=== PATIENT | female | born 1950 | race Hispanic/Latino ===

== ENCOUNTER 2016-08-31 12:59 | Emergency (ER) | payer OTHER, MEDICARE ==
[~2016-08-31] VITALS: Ht 167.6 cm; Wt 89.4 kg
[~2016-08-31 12:59] MED LIST: ALBUTEROL0.09 MG/A1 INH; ASPIRIN EC325 MG PO; BENTYL20 MG PO; LISINOPRIL10 MG PO; PRINIVIL5 M1 PO; ZOFRAN ODT4 M1 PO; ZOFRAN4 M1 PO
[2016-08-31] MEDS ORDERED: AZITHROMYCIN250 M1 PO (13:59)
--- NOTE | 2016-08-31 14:00 | ED INFLUENZA/URI COMPLAINT ---
History of Present Illness General Chief Complaint: Upper Respiratory Sx/Fever Stated Complaint: X2WKS, FEVER,CHILLS,NAUSEA,COUGHING SEEN BY MD Source: patient, old records Exam Limitations: no limitations Vital Signs & Intake/Output Vital Signs & Intake/Output Vital Signs Date Time Temp Pulse Resp B/P Pulse O2 O2 Flow FiO2 Ox Delivery Rate 08/31 1547 98.9 98 20 150/744 96 Room Air 08/31 1304 99.2 108 20 143/85 96 Room Air Allergies Coded Allergies: Fish Containing Products (Severe, ANAPHYLAXIS FROM `SEAFOOD' 01/26/16) Iodinated Contrast Media - Oral and (IODINATED CONTRAST MEDIA - IV DYE) (ITCHING AND REDNESS, - PT SAYS NEEDS TO BE PREMEDICATED 03/22/16) Penicillins (RASH, ITCHING, SWELL 03/22/16) iodine (ITCHING, REDNESS 03/22/16) Reconcile Medications Albuterol Sulfate (Albuterol Sulfate Hfa) 90 MCG HFA.AER.AD 2 PUFF INH Q4-6 PRN PRN SHORTNESS OF BREATH (Reported) 90 MCG PER PUFF Azithromycin 250 MG TABLET 1 DP PO AD ANTIBIOTIC, INFECTION (Reported) 2 the first day followed by 1 for days 2-5 Lisinopril (Prinivil) 5 MG TABLET 1 TAB PO DAILY BP (Reported) Ondansetron (Zofran Odt) 4 MG TAB.RAPDIS 1 TAB SL TID PRN NAUSEA Oseltamivir Phosphate (Tamiflu) 75 MG CAPSULE 1 CAP PO BID INFLUENZA Robitussin AC (Guaifenesin-Codeine Syrup) 200 MG-20 MG/10 ML LIQUID 10 ML PO Q6HR PRN COUGH Triage Note: PT C/O FEVER, WEAKNESS AND NAUSEA. SEEN AT WALK IN AND NEGATIVE FOR FLU. PT STATES NO VOMITING OR DIARRHEA. PT ALSO STATES DRY COUGH Triage Nurses Notes Reviewed? yes Onset: Gradual Duration: week(s): (2), constant Timing: recent history Severity: mild, moderate Severity Numbers: 5 No Modifying Factors: none Associated Symptoms: cough, nausea congestion HPI: 65-year-old female presents emergency room complaining of persistent 2 week history of generalized body aches chills nausea nonproductive cough and congestion. She was started on a Z-Clement 2 days ago by an urgent care and had a negative flu swab done at this time. She states because her nausea she has been unable to keep anything down. She denies any vomiting or diarrhea. She attributes her dizziness and generalized malaise secondary to not eating correctly. There's been no sick contacts or recent travel. No black or bloody stools no diarrhea no abdominal pain chest pain or shortness of breath (RADHA SHARMA) Past History Travel History Traveled to [place] past 21 day No Medical History Any Pertinent Medical History? 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 No (RADHA SHARMA) Review of Systems Review of Systems Constitutional: Reports: see HPI. All Other Systems: Reviewed and Negative Comments Review of systems: See HPI, All other systems negative. Constitutional, chills no fever, no malaise HEENT: No visual changes no sore throat congestion Cardiovascular: No chest pain , no palpitation Skin, no rashes, no change in skin Respiratory: No dyspnea cough no sputum GI: nausea no vomiting, no diarrhea : No dysuria Muscle skeletal: No joint pain, no back pain, no neck pain, Neurologic: No numbness no headache Psych: No stress n Heme/endocrine: No bruising no bleeding Immunology: No lymphadenopathy (RADHA SHARMA) Physical Exam Physical Exam General Appearance: well developed/nourished, no apparent distress, alert, awake , comfortable Ears, Nose, Throat: normal ENT inspection, moist mucous membrane, hearing grossly normal, Tympanic normal Comments: Well-developed well-nourished patient in no apparent distress. Head/Face: Atraumatic, no maxillary/frontal sinus tenderness, no facial swelling Eyes: PERRL, EOMI, no conjunctival injection. No nystagmus Ear:External auditory canal and Tympanic membranes clear Nose: atraumatic.Normal inspection Throat: Moist mucous membranes.Pharynx normal. No pharyngeal erythema/exudate seen. No stridor/drooling or assymetry. No swelling or edema. Neck: Supple, no lymphadenopathy, FROM Back: FROM, Nontender Cardiovascular: Regular rate and rhythms no murmurs rubs or gallops, Respiratory: No respiratory distress. Patient speaking in full complete sentences. Breath sounds clear to auscultation bilaterally: NO W/R/R Abdomen: Soft nontender no rebound or guarding Extremities: full range of motion Neuro: Alert and oriented x3 Skin: Warm & dry;No appreciable rash on exposed skin Psych: Mood affect normal, normal memory normal judgment. Core Measures Severe Sepsis Present: No Septic Shock Present: No (SUSIE RIOS,RADHA) Progress Differential Diagnosis: influenza, otitis, pneumonia, pharyngitis, sinusitis, viral syndrome dehydration Plan of Care: Orders Procedure Date/time Status VIRAL CULTURE 08/31 1430 Active Saline Lock 08/31 1359 Active RAPID VIRAL INFLUENZA A 08/31 1359 Complete CBC WITHOUT DIFFERENTIAL 08/31 1359 Complete BASIC METABOLIC PANEL 08/31 1359 Complete Laboratory Tests 08/31/16 1430: Anion Gap 13, Estimated GFR > 60, BUN/Creatinine Ratio 21.7, Glucose 162 H, Calcium 9.1, CBC w Diff NO MAN DIFF REQ, RBC 4.66, MCV 87.4, MCH 29.6, RDW 12.3, MPV 10.2, Gran % 73.9, Lymphocytes % 12.8 L, Monocytes % 11.0 H, Eosinophils % 1.9, Basophils % 0.4, Absolute Granulocytes 4.4, Absolute Lymphocytes 0.8 L, Absolute Monocytes 0.7 H, Absolute Eosinophils 0.1, Absolute Basophils 0, PUBS MCHC 33.9, Virus Culture Pending Labs ordered old records reviewed IV fluids, Zofran 4 IV ordered. Ordered Case discussed with Dr. Benitez On repeat evaluation patient is resting completely feels improved. Dizziness has resolved she's had no episodes of vomiting IV fluids running. Discussed with her at length all the lab results including her sodium of 1:30. Patient has not been eating appropriately due to her symptoms she is receiving a liter fluid currently case was discussed with DR KRUEGER agrees with plan. 08/31/2016 3:59:34 PMOn repeat evaluation patient again resting in no apparent distress Prescription for Tamiflu Robitussin with codeine and Zofran was provided Discussed with patient over lab results need for close follow-up, I advised post follow-up with her primary care physician provided bland diet clear liquids advance diet as tolerated patient clinically appears well nontoxic-appearing. She's feels comfortable plan cleared for discharge (RADHA SHARMA) Initial ED EKG: none (RADHA SHARMA) Departure Departure Time of Disposition: 1536 Disposition: HOME OR SELF CARE Condition: Stable Clinical Impression Primary Impression: Influenza Secondary Impressions: Hyponatremia Referrals: SASHA CARRENO,SARI (PCP/Family) Additional Instructions: TAMIFLU DIRECTED, ROBITUSSIN WITH CODEINE FOR COUGH THIS MAY MAKE YOU DROWSY. DRINK PLENTY OF FLUIDS, ZOFRAN FOR NAUSEA. TYLENOL OR MOTRIN EVERY 4-6 HOURS. FOLLOW UP WITH YOUR PMD THIS WEEK. RETURN WITH ANY CONCERNS. THESE PRESCRIPTIONS WERE SENT TO YOUR [facility]. Departure Forms: Customer Survey General Discharge Information Prescriptions: Current Visit Scripts Robitussin AC (Guaifenesin-Codeine Syrup) 10 ML PO Q6HR PRN COUGH #200 ML Oseltamivir Phosphate (Tamiflu) 1 CAP PO BID #10 CAP Ondansetron (Zofran Odt) 1 TAB SL TID PRN NAUSEA #10 TAB (RADHA SHARMA) PA/CAPACITY MANAGER Co-Sign Statement Statement: ED Attending supervision documentation- X] I saw and evaluated the patient. I have also reviewed all the pertinent lab results and diagnostic results. I agree with the findings and the plan of care as documented in the PA's/CAPACITY MANAGER's documentation. [] I have reviewed the ED Record and agree with the PA's/CAPACITY MANAGER's documentation. [] Additions or exceptions (if any) to the PAs/CAPACITY MANAGER's note and plan are summarized below: [] (REKHA KRUEGER DO) ED Attending Observation Initial Observation Note: I have seen and personally examined KEI TATE on 08/31/16 at 1406. I agree with the current emergency department documentation. The disposition (admission or discharge) is uncertain at this time, she needs a period of observation for the following reason(s): The ED Nurse caring for this patient has been personally informed as to what the patient is being observed for. (RADHA SHARMA)
[2016-08-31 14:37] LABS: ABSOLUTE BASOPHIL COUNT 0 /CUMM (0.0-0.2); ABSOLUTE EOSINOPHIL COUNT 0.1 /CUMM (0.0-0.7); ABSOLUTE GRANULOCYTE CT 4.4 /CUMM (1.4-6.5); ABSOLUTE LYMPH COUNT 0.8 /CUMM (1.2-3.4); ABSOLUTE MONOCYTE COUNT 0.7 /CUMM (0.10-0.60); BASOPHIL % 0.4 % (0.0-2.0); EOSINOPHIL % 1.9 % (0-5); GRANULOCYTE % 73.9 % (42.2-75.2); HEMATOCRIT 40.7 % (37-47); MEAN CORPUSCULAR HGB 29.6 PG (27.0-31.0); MEAN CORPUSCULAR HGB CONC 33.9 G/DL (33.0-37.0); MEAN CORPUSCULAR VOLUME 87.4 FL (81.0-99.0); MEAN PLATELET VOLUME 10.2 FL (7.4-10.4); PLATELET COUNT 154 /CUMM (130-400); RBC DISTRIBUTION WIDTH 12.3 % (11.5-14.5); RED BLOOD CELL CT 4.66 /CUMM (4.20-5.40); WHITE BLOOD CELL COUNT 5.9 /CUMM (4.8-10.8)
[2016-08-31] MEDS ORDERED: GUAIFENESIN-COD10 ML PO (15:40)
[2016-08-31] MEDS ORDERED: ZOFRAN ODT4 M1 SL (15:40)
[2016-08-31] MEDS ORDERED: TAMIFLU75 M1 PO (15:40)
[2016-08-31 15:47] VITALS: BP 150/744
== END 2016-08-31 16:12 ==
LOC: ERH 12:59
PROVIDERS: Physician Assistant Medical
DX: J11.1 Influenza due to unidentified influenza virus with other respiratory manifestations (principal); E87.1 Hypo-osmolality and hyponatremia
CPT/HCPCS: 87804; 87804-59; 96361; 96374; J2405

== ENCOUNTER 2016-09-01 23:04 | Emergency (ER) | payer OTHER, MEDICARE ==
[~2016-09-01] VITALS: Ht 167.6 cm; Wt 89.4 kg
[~2016-09-01 23:04] MED LIST changes: +AZITHROMYCIN250 M1 PO; +GUAIFENESIN-COD10 ML PO; +TAMIFLU75 M1 PO; +ZOFRAN ODT4 M1 SL
--- NOTE | 2016-09-01 23:57 | ED GI/GU/ABDOMINAL COMPLAINT ---
History of Present Illness General Chief Complaint: General Adult Stated Complaint: PELVIC PAIN, CONSTIPATION, X 1 DAY Source: patient, family, old records Exam Limitations: no limitations Vital Signs & Intake/Output Vital Signs & Intake/Output Vital Signs Date Time Temp Pulse Resp B/P Pulse O2 O2 Flow FiO2 Ox Delivery Rate 09/01 2350 98.6 87 16 165/74 96 Room Air ED Intake and Output 09/02 0000 09/01 1200 Intake Total Output Total Balance Patient 197 lb Weight Allergies Coded Allergies: Fish Containing Products (Severe, ANAPHYLAXIS FROM `SEAFOOD' 01/26/16) Iodinated Contrast Media - Oral and (IODINATED CONTRAST MEDIA - IV DYE) (ITCHING AND REDNESS, - PT SAYS NEEDS TO BE PREMEDICATED 03/22/16) Penicillins (RASH, ITCHING, SWELL 03/22/16) iodine (ITCHING, REDNESS 03/22/16) Reconcile Medications Albuterol Sulfate (Albuterol Sulfate Hfa) 90 MCG HFA.AER.AD 2 PUFF INH Q4-6 PRN PRN SHORTNESS OF BREATH (Reported) 90 MCG PER PUFF Azithromycin 250 MG TABLET 1 DP PO AD ANTIBIOTIC, INFECTION (Reported) 2 the first day followed by 1 for days 2-5 Hyoscyamine (Levsin) 0.125 MG TABLET 1 TAB PO Q4 PRN ABDOMINAL PAIN Lisinopril (Prinivil) 5 MG TABLET 1 TAB PO DAILY BP (Reported) Ondansetron (Zofran Odt) 4 MG TAB.RAPDIS 1 TAB SL TID PRN NAUSEA Oseltamivir Phosphate (Tamiflu) 75 MG CAPSULE 1 CAP PO BID INFLUENZA Robitussin AC (Guaifenesin-Codeine Syrup) 200 MG-20 MG/10 ML LIQUID 10 ML PO Q6HR PRN COUGH Triage Note: 65YO FEMALE TO TRIAGE W/CO PELVIC PRESSURE AND CONSTIPATION. STTES SHE JUST HASD "DIARRHEA BM IN OUR WR BR" ALSO STTES SHE WAS SEEN HERE YESTERDAY AND TESTED POSITIVE FOR FLU. Triage Nurses Notes Reviewed? yes ? N Is pt currently ? No HPI: Patient states that she has been feeling sick for the past week and a half. Patient was seen in the emergency department yesterday and tested positive for influenza. Patient was started on Tamiflu and Robitussin with codeine. Earlier this evening she developed a pressure sensation across her lower abdomen that radiated into the left lower quadrant and into the left mid quadrant. The pain waxes and wanes in intensity. The pain fluctuates from between a 2 out of 10 up to a 10 out of 10. When it is a 10 out of 10 she feels like she is on a pass out. There are no aggravating or mitigating factors. There is no nausea or vomiting. Patient felt like she had to go to the bathroom but was unable to. Patient then had a diarrheal movement in the emergency department. Patient states that did not help the pain at all. Past History Travel History Traveled to [place] past 21 day No Medical History Any Pertinent Medical History? 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 No Review of Systems Review of Systems Constitutional: Reports: no symptoms. EENTM: Reports: no symptoms. Respiratory: Reports: no symptoms. Cardiovascular: Reports: no symptoms. GI: Reports: see HPI, abdominal pain, diarrhea. Genitourinary: Reports: no symptoms. Musculoskeletal: Reports: no symptoms. Skin: Reports: no symptoms. Neurological/Psychological: Reports: no symptoms. Hematologic/Endocrine: Reports: no symptoms. Immunologic/Allergic: Reports: no symptoms. All Other Systems: Reviewed and Negative Physical Exam Physical Exam General Appearance: well developed/nourished, alert, awake, anxious, moderate distress Head: atraumatic Eyes: Bilateral: PERRL, EOMI. Ears, Nose, Throat, Mouth: hearing grossly normal, DRY MUCOUS MEMBRANES Neck: normal inspection, supple, full range of motion Respiratory: normal breath sounds, chest non-tender, no respiratory distress, lungs clear Cardiovascular: regular rate/rhythm, normal peripheral pulses Gastrointestinal: normal bowel sounds, soft, non-tender, no organomegaly, NO REBOUND OR GUARDING Back: normal inspection, normal range of motion, NO cva TENDERNESS Extremities: normal range of motion Neurologic/Psych: no motor/sensory deficits, awake, alert, oriented x 3, normal gait, normal mood/affect Skin: intact, normal color, warm/dry Core Measures ACS in differential dx? No Severe Sepsis Present: No Septic Shock Present: No Progress Differential Diagnosis: appendicitis, biliary colic, cholecystitis, diverticulitis, gastritis, hepatitis, ischemic bowel, inflamm bowel dis, UTI/ pyelo Plan of Care: Orders Procedure Date/time Status URINALYSIS 09/01 2351 Active LIPASE 09/01 2351 Complete COMPREHENSIVE METABOLIC PANEL 09/01 2351 Complete CBC WITHOUT DIFFERENTIAL 09/01 2351 Complete AMYLASE 09/01 2351 Complete Current Medications Sig/Juan Pablo Start time Last Medication Dose Stop Time Status Admin Hyoscyamine 0.125 MG ONCE ONE 09/02 99 UNVr (Levsin) 09/02 100 Laboratory Tests 09/02/16 0006: Anion Gap 10, Estimated GFR > 60, BUN/Creatinine Ratio 22.9, Glucose 199 H, Calcium 8.6, Total Bilirubin 0.4, AST 32, ALT 42, Alkaline Phosphatase 92, Total Protein 6.7, Albumin 3.8, Globulin 2.9, Albumin/Globulin Ratio 1.3, Amylase 60, Lipase 86, CBC w Diff NO MAN DIFF REQ, RBC 4.49, MCV 86.8, MCH 29.5, RDW 12.5, MPV 10.9 H, Gran % 73.2, Lymphocytes % 16.4 L, Monocytes % 7.8, Eosinophils % 2.3, Basophils % 0.3, Absolute Granulocytes 4.7, Absolute Lymphocytes 1.1 L, Absolute Monocytes 0.5, Absolute Eosinophils 0.1, Absolute Basophils 0, PUBS MCHC 34.0 Diagnostic Imaging: Viewed by Me: CT Scan. Discussed w/RAD: CT Scan. Radiology Impression: PATIENT: KEI TATE PRESENT AGE: 65 PATIENT ACCOUNT NO: [id number] : 49 LOCATION: [facility] ORDERING PHYSICIAN: TIFFANIE FISHMAN MD SERVICE DATE: 09/01/16 EXAM TYPE: CAT - CT ABD & PELVIS W/O IV CONTRAS EXAMINATION: CT ABDOMEN AND PELVIS WITHOUT CONTRAST CLINICAL INFORMATION: Left lower quadrant pain. Presumptive diagnosis: Diverticulitis. COMPARISON: 02/22/2015 TECHNIQUE: Multidetector volumetric imaging was performed from the superior aspect of the liver through the pubic symphysis. Sagittal and coronal reformatted images were obtained on the technologist's workstation. DLP: 904 mGy-cm. FINDINGS: LUNG BASES: Mild dependent atelectasis. LIVER, GALLBLADDER, AND BILIARY TREE: Punctate calcification in the liver is likely due to prior granulomatous infection. Liver is otherwise normal. No focal lesions are identified. No biliary ductal dilatation. The gallbladder is unremarkable with no evidence of radiopaque gallstones, gallbladder wall thickening, or obvious pericholecystic inflammatory changes. PANCREAS: Unremarkable. SPLEEN: Punctate calcifications are present within the spleen, consistent with granuloma. ADRENAL GLANDS: Unremarkable. KIDNEYS AND URETERS: The kidneys are normal in size, shape, and attenuation. No hydronephrosis, hydroureter, or calculi seen. No perinephric stranding. BLADDER: Unremarkable. GASTROINTESTINAL TRACT: Stomach, small bowel, and colon are normal in caliber. The majority of the colon is decompressed, most notably the descending and sigmoid colon. Sensitivity for bowel bowel inflammation is somewhat limited without intravenous contrast material. No acute inflammatory findings are appreciated in the stomach, small bowel, and colon. No intraperitoneal free fluid or free air. Appendix is unremarkable. ABDOMINAL WALL : No significant hernia is appreciated. LYMPH NODES: Normal. VASCULAR: Calcific atherosclerosis is present in the abdominal aorta and iliac arteries. No acute aneurysmal dilatation. PELVIC VISCERA: Uterus appears surgically absent. OSSEOUS STRUCTURES: There is marked facet arthropathy in the lower lumbar spine with grade 1 anterolisthesis of L4 on L5. Mild multilevel degenerative spondylosis is present in the lumbar spine. No fracture. IMPRESSION: No acute intra-abdominal or intrapelvic abnormalities. Specifically, no evidence of acute diverticulitis. Sensitivity for mild bowel inflammation slightly limited by the absence of intravenous or oral contrast material. DICTATED BY: JIMENA SOSA MD DATE/TIME DICTATED:09/02/1631 CROP OR LIVESTOCK TENANT FARMER:JACQUELINE DATE/TIME TRANSCRIBED:31 CONFIDENTIAL, DO NOT COPY WITHOUT APPROPRIATE AUTHORIZATION. < Electronically signed in Other Vendor System> SIGNED BY: JIMENA SOSA MD 09/02/167 Initial ED EKG: none Comments: Patient has been updated on her lab and CAT scan results. Patient states the Toradol helped and that her pain is down to a 2 out of 10. Departure Departure Disposition: HOME OR SELF CARE Condition: Stable Clinical Impression Primary Impression: Lower abdominal pain, unspecified Secondary Impressions: Hyponatremia Referrals: SARI BAEZ MD (PCP/Family) Additional Instructions: Drink plenty of fluids. Return is symptoms worsen or for any concerns. Follow- up with your primary care physician. Departure Forms: Customer Survey General Discharge Information Prescriptions: Current Visit Scripts Hyoscyamine (Levsin) 1 TAB PO Q4 PRN ABDOMINAL PAIN #20 TAB
[2016-09-02 00:15] LABS: ABSOLUTE BASOPHIL COUNT 0 /CUMM (0.0-0.2); ABSOLUTE EOSINOPHIL COUNT 0.1 /CUMM (0.0-0.7); ABSOLUTE GRANULOCYTE CT 4.7 /CUMM (1.4-6.5); ABSOLUTE LYMPH COUNT 1.1 /CUMM (1.2-3.4); ABSOLUTE MONOCYTE COUNT 0.5 /CUMM (0.10-0.60); BASOPHIL % 0.3 % (0.0-2.0); EOSINOPHIL % 2.3 % (0-5); GRANULOCYTE % 73.2 % (42.2-75.2); MEAN CORPUSCULAR HGB 29.5 PG (27.0-31.0); MEAN CORPUSCULAR VOLUME 86.8 FL (81.0-99.0); MEAN PLATELET VOLUME 10.9 FL (7.4-10.4); PLATELET COUNT 152 /CUMM (130-400); RBC DISTRIBUTION WIDTH 12.5 % (11.5-14.5); RED BLOOD CELL CT 4.49 /CUMM (4.20-5.40); WHITE BLOOD CELL COUNT 6.5 /CUMM (4.8-10.8)
--- NOTE | 2016-09-02 00:47 | CT SCAN REPORT ---
EXAMINATION: CT ABDOMEN AND PELVIS WITHOUT CONTRAST CLINICAL INFORMATION: Left lower quadrant pain. Presumptive diagnosis: Diverticulitis. COMPARISON: 02/22/2015 TECHNIQUE: Multidetector volumetric imaging was performed from the superior aspect of the liver through the pubic symphysis. Sagittal and coronal reformatted images were obtained on the technologist's workstation. DLP: 904 mGy-cm. FINDINGS: LUNG BASES: Mild dependent atelectasis. LIVER, GALLBLADDER, AND BILIARY TREE: Punctate calcification in the liver is likely due to prior granulomatous infection. Liver is otherwise normal. No focal lesions are identified. No biliary ductal dilatation. The gallbladder is unremarkable with no evidence of radiopaque gallstones, gallbladder wall thickening, or obvious pericholecystic inflammatory changes. PANCREAS: Unremarkable. SPLEEN: Punctate calcifications are present within the spleen, consistent with granuloma. ADRENAL GLANDS: Unremarkable. KIDNEYS AND URETERS: The kidneys are normal in size, shape, and attenuation. No hydronephrosis, hydroureter, or calculi seen. No perinephric stranding. BLADDER: Unremarkable. GASTROINTESTINAL TRACT: Stomach, small bowel, and colon are normal in caliber. The majority of the colon is decompressed, most notably the descending and sigmoid colon. Sensitivity for bowel bowel inflammation is somewhat limited without intravenous contrast material. No acute inflammatory findings are appreciated in the stomach, small bowel, and colon. No intraperitoneal free fluid or free air. Appendix is unremarkable. ABDOMINAL WALL: No significant hernia is appreciated. LYMPH NODES: Normal. VASCULAR: Calcific atherosclerosis is present in the abdominal aorta and iliac arteries. No acute aneurysmal dilatation. PELVIC VISCERA: Uterus appears surgically absent. OSSEOUS STRUCTURES: There is marked facet arthropathy in the lower lumbar spine with grade 1 anterolisthesis of L4 on L5. Mild multilevel degenerative spondylosis is present in the lumbar spine. No fracture. IMPRESSION: No acute intra-abdominal or intrapelvic abnormalities. Specifically, no evidence of acute diverticulitis. Sensitivity for mild bowel inflammation slightly limited by the absence of intravenous or oral contrast material.
[2016-09-02] MEDS ORDERED: LEVSIN0.125 M1 PO (00:57)
[2016-09-02 01:45] VITALS: BP 143/76
== END 2016-09-02 01:53 ==
LOC: ERH 23:04
PROVIDERS: Emergency Medicine
DX: E87.1 Hypo-osmolality and hyponatremia (principal); R10.32 Left lower quadrant pain
CPT/HCPCS: 74176; 96361; 96374; J1885

== ENCOUNTER 2017-01-08 23:51 | Emergency (ER) | payer OTHER, MEDICARE ==
[~2017-01-08] VITALS: Ht 165.1 cm; Wt 77.1 kg
[~2017-01-08 23:51] MED LIST changes: +LEVSIN0.125 M1 PO
--- NOTE | 2017-01-09 00:14 | ED SKIN/ALLERGY COMPLAINT ---
History of Present Illness General Chief Complaint: Skin Rash/ Abcess Stated Complaint: SKIN RASH Source: patient Exam Limitations: no limitations Vital Signs & Intake/Output Vital Signs & Intake/Output Vital Signs Date Time Temp Pulse Resp B/P B/P Pulse O2 O2 Flow FiO2 Mean Ox Delivery Rate 01/09 0021 98.5 78 18 177/82 98 Room Air Allergies Coded Allergies: Fish Containing Products (Severe, ANAPHYLAXIS FROM `SEAFOOD' 01/26/16) Iodinated Contrast Media - Oral and (IODINATED CONTRAST MEDIA - IV DYE) (ITCHING AND REDNESS, - PT SAYS NEEDS TO BE PREMEDICATED 03/22/16) Penicillins (RASH, ITCHING, SWELL 03/22/16) iodine (ITCHING, REDNESS 03/22/16) Reconcile Medications Albuterol Sulfate (Albuterol Sulfate Hfa) 90 MCG HFA.AER.AD 2 PUFF INH Q4-6 PRN PRN SHORTNESS OF BREATH (Reported) 90 MCG PER PUFF Azithromycin 250 MG TABLET 1 DP PO AD ANTIBIOTIC, INFECTION (Reported) 2 the first day followed by 1 for days 2-5 Hyoscyamine (Levsin) 0.125 MG TABLET 1 TAB PO Q4 PRN ABDOMINAL PAIN Lisinopril (Prinivil) 5 MG TABLET 1 TAB PO DAILY BP (Reported) Ondansetron (Zofran Odt) 4 MG TAB.RAPDIS 1 TAB SL TID PRN NAUSEA Oseltamivir Phosphate (Tamiflu) 75 MG CAPSULE 1 CAP PO BID INFLUENZA Prednisone 50 MG TABLET 1 TAB PO DAILY ALLERGIC REACTION Robitussin AC (Guaifenesin-Codeine Syrup) 200 MG-20 MG/10 ML LIQUID 10 ML PO Q6HR PRN COUGH Triage Nurses Notes Reviewed? yes Onset: Gradual Duration: hour(s):, waxing and waning Timing: recent history Severity: moderate Location: torso, extremities Possible Factors: foods Modifying Factors: Worsens With: scratching. Associated Symptoms: ITCHING, RED RASH HPI: 66-year-old woman with a history of fish allergy presents with itchy rash that began after adventist this morning. She states that someone brought her a fish to her home for Mother's Day. She left it on the counter. When she came home from [place] she began having itching on her trunk and her arms. She has no wheezing or problems breathing. She hasn't taken any medications. She is here due to the persistent itching and raised red rash on her trunk and arms. Past History Travel History Traveled to [place] past 21 day No Medical History Any Pertinent Medical History? see below for history Neurological: TIA EENT: NONE Cardiovascular: hypertension Respiratory: asthma Gastrointestinal: NONE Hepatic: NONE Renal: NONE Musculoskeletal: NONE Psychiatric: anxiety, depression Endocrine: NONE Blood Disorders: NONE Cancer(s): breast cancer [employer]/Reproductive: NONE Surgical History Surgical History: appendectomy, LEFT LUMECTOMY COLONOSCOPY 2006 Psychosocial History What is your primary language Ukrainian Family History Hx Contributory? No Review of Systems Review of Systems Constitutional: Reports: no symptoms. EENTM: Reports: no symptoms. Respiratory: Reports: no symptoms. Cardiovascular: Reports: no symptoms. GI: Reports: no symptoms. Genitourinary: Reports: no symptoms. Musculoskeletal: Reports: no symptoms. Skin: Reports: no symptoms. Neurological/Psychological: Reports: no symptoms. Hematologic/Endocrine: Reports: no symptoms. Immunologic/Allergic: Reports: no symptoms. All Other Systems: Reviewed and Negative Physical Exam Physical Exam General Appearance: well developed/nourished, mild distress Head: atraumatic Eyes: Bilateral: normal appearance. Ears, Nose, Throat: normal pharynx, normal ENT inspection, hearing grossly normal Neck: normal inspection, supple Respiratory: normal breath sounds Cardiovascular: regular rate/rhythm Gastrointestinal: soft, non-tender Back: normal inspection Extremities: normal inspection, normal range of motion, no edema Neurologic/Psych: awake, alert, oriented x 3, normal mood/affect Skin: DIFFUSE URTICARIA ON TRUNK AND ARMS AND NECK Lymphatic: no anterior cervical agapito Progress Differential Diagnosis: allergic reaction, anaphylaxis, contact dermatitis, drug reaction, urticaria Plan of Care: Current Medications Sig/Juan Pablo Start time Last Medication Dose Stop Time Status Admin Dexamethasone 8 MG ONCE ONE 01/09 30 UNVr (Decadron) 01/09 31 Diphenhydramine HCl 50 MG ONCE ONE 01/09 30 UNVr (Benadryl) 01/09 31 Departure Departure Disposition: HOME OR SELF CARE Condition: Stable Clinical Impression Primary Impression: Urticaria Referrals: SARI BAEZ MD (PCP/Family) Departure Forms: Customer Survey General Discharge Information Prescriptions: Current Visit Scripts Prednisone 1 TAB PO DAILY #3 TAB
[2017-01-09] MEDS ORDERED: PREDNISONE50 M1 PO (00:26)
[2017-01-09 01:29] VITALS: BP 164/80
== END 2017-01-09 01:30 ==
LOC: ERH 23:51
DX: L50.9 Urticaria, unspecified (principal)